=== PATIENT | female | born 1950 | race Asian ===

== ENCOUNTER 2018-10-25 14:41 | Outpatient (CLI) | payer OTHER ==
[~2018-10-25 14:41] MED LIST: BISO5TAB2 PO; GABA300C2 PO; GLIP5TAB65 PO; HYDROCHLOROT12.5 M1 PO; LOSA50TA PO; METF500T PO; OXYC5TAB53 PO; RANI150T78 PO; TRAM50TA PO
== END 2018-10-25 23:29 | disposition home or self-care (01) ==
LOC: RAD 14:41
DX: M17.0 Bilateral primary osteoarthritis of knee (principal); M47.816 Spondylosis without myelopathy or radiculopathy, lumbar region

== ENCOUNTER 2019-05-01 10:05 | Outpatient (CLI) | payer OTHER | END 2019-05-01 23:36 | disposition home or self-care (01) | LOC: RAD 10:05 | DX: M47.812 Spondylosis without myelopathy or radiculopathy, cervical region (principal); M47.816 Spondylosis without myelopathy or radiculopathy, lumbar region ==

== ENCOUNTER 2020-07-28 15:06 | Outpatient (CLI) | payer OTHER | END 2020-07-28 19:17 | disposition home or self-care (01) | LOC: RAD 15:06 | DX: M79.672 Pain in left foot (principal) ==

== ENCOUNTER 2021-07-16 13:45 | Inpatient (IN) | payer OTHER ==
[2021-07-16] VITALS (13 sets, daily range): BP systolic 88–117; BP diastolic 43–83; TEMP 97.4–98.9
[~2021-07-16] VITALS: Ht 160 cm; Wt 93.7 kg
[2021-07-16 16:12] LABS: PLATELET COUNT 384 K/uL (152-353)
[2021-07-16 16:17] LABS: POTASSIUM 4.2 mmol/L (3.6-5.2); SODIUM 141 mmol/L (136-145)
--- NOTE | 2021-07-16 19:50 | NUR ---
BROUGHT PT TO FLOOR VIA WC FROM ER. DID NOT RECIEVE REPORT ON PT FROM ER AND PT DOES NOT CURRENTLY HAVE ANY ORDERS IN OTHER THAN DIET, O2 SUPPLEMENT, AND DIAGNOSIS. PT WAS PUT IN ROOM AND PUT ON 4L NC ACCORDING TO ORDERS. PLACED PT ON TELE WITH CONTINUOUS 02. PT'S CURRENT 02 SAT IS 95% AND HR IS IN THE 80'S A THIS TIME. VITAL SIGNS STABLE. NAD AT THIS TIME. WILL CONTINUE TO MONITOR.
[2021-07-17 04:00] VITALS: BP 111/66; TEMP 97.4
[2021-07-17] MEDS ORDERED: PRAVACHOL20 MG PO (04:32)
[2021-07-17] MEDS ORDERED: ALLERCLEAR10 MG PO (04:33)
[2021-07-17] MEDS ORDERED: LYRICA25 MG PO (04:34)
[2021-07-17] MEDS ORDERED: OMEP20CA PO (04:36)
[2021-07-17] MEDS ORDERED: ZIAC PO (04:36)
[2021-07-17] MEDS ORDERED: METF500T PO (04:37)
[2021-07-17] MEDS ORDERED: GABA300C2 PO ×2 (04:38)
[2021-07-17] MEDS ORDERED: COZAAR100 MG PO (04:39)
[2021-07-17] MEDS ORDERED: VITAMIN D31000 UNIT (04:40)
[2021-07-17] MEDS ORDERED: FOLATE400 MCG PO (04:40)
[2021-07-17] MEDS ORDERED: VITAMIN B6100 MG PO (04:41)
[2021-07-17 04:55] LABS: POTASSIUM 4.8 mmol/L (3.6-5.2)
[2021-07-17 05:07] LABS: PLATELET COUNT 320 K/uL (152-353)
[2021-07-17 05:47] VITALS: BP 112/67; TEMP 97.4; Ht 160 cm; Wt 93.7 kg
--- NOTE | 2021-07-17 06:43 | NUR ---
pt's home meds have been placed in the med room. pt has a plastic bag with a bra, glasses, and keys at her bedside.
[2021-07-17 08:00] VITALS: BP 131/83; TEMP 97.5
--- NOTE | 2021-07-17 10:06 | NUR ---
PHARM D HAS CONTACTED CLINICAL COURIER TO INFORM CLINICAL COURIER THAN PT'S RENAL FUNCTION DOES NOT MEET RECOMMENDED CRITERIA FOR REMDESIVIR INFUSION. MADE AWARE.
--- NOTE | 2021-07-17 10:30 | NUR ---
IN PT'S ROOM FOR MED ADMINISTRATION AND MORNING ASSESSMENT. PT ASKED TO BE PLACED ON THE BEDSIDE COMMODE. PT'S O2 DECREASED WHILE PT WAS UP TO THE BEDSIDE COMMODE BUT REBOUNDED WHEN PLACED BACK INTO THE BED. IT WAS FOUND THAT THE IV IN THE RIGHT AC HAD INFILTRATED AND WAS THUS DISCONTINUED. PT VOIDED AND HAD SMALL LOOSE BM IN THE BEDSIDE COMMODE. PT SHOWS SIGNS OF ANXIETY WITH SHAKING LEGS AND FEET AT TIMES. AFTER TALKING WITH PT, PT CALMED DOWN AND SHAKING CEASED. WILL CONTINUE TO MONITOR.
[2021-07-17 12:00] VITALS: BP 137/77; TEMP 97.7
--- NOTE | 2021-07-17 15:00 | NUR ---
A NEW IV SITE WAS SUCCESSFULLY DONE BY DEMETRI ALICIA RN. A 22G WAS PLACED IN THE RIGHT AC AREA. IV IS FLUSHED AND SHOWING NO SIGNS OF INFILTRATION. PT TOLERATED IV INSERTION WITHOUT ANY DIFFICULTIES.
[2021-07-17 16:00] VITALS: BP 142/89; TEMP 97.6
[2021-07-17 20:00] VITALS: BP 146/83; TEMP 97.9
[2021-07-18] VITALS: BP 115/72; TEMP 97.6
--- NOTE | 2021-07-18 03:25 | NUR ---
PATIENT PLACED ON HFNC AT 40/60
[2021-07-18 04:00] VITALS: BP 141/71; TEMP 98.5
[2021-07-18 05:06] LABS: PLATELET COUNT 393 K/uL (152-353)
[2021-07-18 05:27] LABS: POTASSIUM 4.4 mmol/L (3.6-5.2)
--- NOTE | 2021-07-18 06:12 | NUR ---
07/18/21 @ 0245: PT BEGAN TO DESAT TO LOW 70'S, OXYGEN LITERS INCREASED TO 5LPM VIA NC AT THIS TIME AND RESPIRATORY NOTIFIED. 0300: BROCK, RT, AT BEDSIDE AND PLACED PATIENT ON HIGH FLOW WITH SETTINGS OF 45L, FIO2 60%. PATIENT V/O "THAT FEELS BETTER". SPO2 99% AT THIS TIME. 0305 PATIENT C/O OF NECK PAIN AND ADMITS TO CHRONIC NECK PAIN WITH SURGICAL HX ON NECK. ULTRA 50MG X1 TAB GIVEN AT THIS TIME. 0350 PATIENT RESTING QUIETLY WITH EYES CLOSED IN HIGH FOWLERS POSITION. NAD NOTED WITH PATIENT AT THIS TIME.
[2021-07-18 08:00] VITALS: BP 112/69; TEMP 98.3
--- NOTE | 2021-07-18 10:07 | NUR ---
SPO2 AT 99% DECREASED FIO2 TO 50%. SPO2 AT 95-96%. WILL CONTINUE TO MONITOR AND WEAN TOLERATED.
[2021-07-18 12:00] VITALS: BP 155/82; TEMP 97.9
--- NOTE | 2021-07-18 13:00 | NUR ---
IN PT'S ROOM TO CHECK ON PT. PT IS SITTING IN HIGH FOWLERS WATCHING TV WHILE USING INCENTIVE SPIROMETER. PT WAS LEFT TO RELAX AND CONTINUE PRACTICING INCENTIVE SPIROMETER. WILL BE BACK LATER TO CHECK IN.
[2021-07-18 16:00] VITALS: BP 150/74; TEMP 98
--- NOTE | 2021-07-18 18:39 | NUR ---
SPO2 AT 98% AT 50% ON 50LPM HFNC. DECREASED FIO2 TO 40%. SPO2 AT 97%.
[2021-07-18 20:00] VITALS: BP 175/84; TEMP 97.1
--- NOTE | 2021-07-18 22:27 | NUR ---
SHIFT ASSESSMENT COMPLETED. PATIENT IS RESTING QUIETLY WITH EYES OPEN WATCHING TV. PATIENT DENIES ANY PAIN AT THIS TIME. PATIENT REMAINS ON HIGH FLOW AT THIS TIME AND IS TOLERATING IT WELL. NO ACUTE DISTRESS NOTED.
[2021-07-19] VITALS: BP 163/87; TEMP 97.5
[2021-07-19 04:00] VITALS: BP 140/73; TEMP 98
[2021-07-19 05:53] LABS: PLATELET COUNT 379 K/uL (152-353)
[2021-07-19 06:09] LABS: POTASSIUM 4.6 mmol/L (3.6-5.2)
[2021-07-19 08:00] VITALS: BP 166/88; TEMP 97.9
--- NOTE | 2021-07-19 08:23 | NUR ---
PT SITTING ON SIDE OF BED. PT IS ALERT AND ORIENTED. PT IS ON HIGH FLOW O2. PT ANSWERS ALL QUESTIONS CORRECTLY. NO ACUTE RESP DISTRESS NOTED. PT IS CALM. HEART RATE REGULAR. SKIN WARM AND DRY. WILL CONTINUE TO MONITOR PT.
--- NOTE | 2021-07-19 10:51 | NUR ---
PT IS AWAKE, ALERT AND ORIENTED. PT IS SITTING UP IN THE BED. NO COMPLAINTS OF VOICED.
[2021-07-19 12:00] VITALS: BP 133/94; TEMP 97.7
--- NOTE | 2021-07-19 14:34 | NUR ---
PT IS AWAKE, ALERT AND ORIENTED. PT SITTING ON SIDE OF BED. PT DENIES ANY COMPLAINTS OR NEEDS AT THIS TIME. PT DID NOT EAT LUNCH VOICING, "I CAN'T EAT THAT CHICKEN." PT OFFERED SOUP BUT DECLINED.
[2021-07-19 16:00] VITALS: BP 153/81; TEMP 97.8
[2021-07-19 20:00] VITALS: BP 164/61; TEMP 98.3
--- NOTE | 2021-07-19 20:00 | NUR ---
PM ASSESSMENT COMPLETE.
[2021-07-20 00:18] VITALS: BP 165/92; TEMP 97.6
--- NOTE | 2021-07-20 03:00 | NUR ---
TISSUE AND WIPES GIVEN.
[2021-07-20 04:27] VITALS: BP 144/91; TEMP 97.4
--- NOTE | 2021-07-20 04:44 | NUR ---
PT WAS REPOSITIONED IN BED. USING NRB.
[2021-07-20 05:43] LABS: PLATELET COUNT 396 K/uL (152-353)
[2021-07-20 05:59] LABS: POTASSIUM 4.7 mmol/L (3.6-5.2)
[2021-07-20 08:00] VITALS: BP 152/90; TEMP 97.5
--- NOTE | 2021-07-20 08:15 | NUR ---
Pt. SITTING UP ON SIDE OF BED WITH HIGH FLOW O2 ON.
[2021-07-20 12:00] VITALS: BP 168/88; TEMP 97.7
--- NOTE | 2021-07-20 13:47 | NUR ---
C/O NAUSEA. ZOFRAN 4MG GIVEN IV.
--- NOTE | 2021-07-20 14:30 | NUR ---
NAUSEA RELIEVED. Pt. RESTING IN BED.
[2021-07-20 16:00] VITALS: BP 147/89; TEMP 98.4
[2021-07-20 20:00] VITALS: BP 159/84; TEMP 98.3
[2021-07-21] VITALS: BP 154/64; TEMP 98.3
[2021-07-21 03:57] VITALS: BP 159/83; TEMP 97.7
[2021-07-21 04:44] LABS: PLATELET COUNT 375 K/uL (152-353)
[2021-07-21 05:04] LABS: POTASSIUM 4.6 mmol/L (3.6-5.2)
[2021-07-21 08:00] VITALS: BP 142/67; TEMP 98.3
[2021-07-21 12:00] VITALS: BP 155/82; TEMP 97.9
--- NOTE | 2021-07-21 14:32 | NUR ---
PT ASSIGNED TO THIS NURSE AND REPORT GIVEN BY AVERY NOBLE. PT ALERT AND ORIENTED. DENIES ANY PAIN OR DISCOMFORT. NO NAD NOTED.
[2021-07-21 16:00] VITALS: BP 167/92; TEMP 97.5
--- NOTE | 2021-07-21 18:48 | NUR ---
PT SITTING ON THE SIDE OF THE BED TALKING ON THE PHONE WITH HER GRANDAUGHTER. SHE IS MAINTAING O2 SATS OF 91-92% WHILE TALKING ON THE PHONE. shE IS CALM AND COOPERATIVE WITH STAFF.
[2021-07-21 20:00] VITALS: BP 157/88; TEMP 97.8
[2021-07-22] VITALS: BP 113/65; TEMP 97.7
[2021-07-22 04:00] VITALS: BP 152/87; TEMP 98.5
[2021-07-22 08:00] VITALS: BP 145/81; TEMP 97.8
[2021-07-22] MEDS ORDERED: ZINC220C4 PO (08:52)
[2021-07-22] MEDS ORDERED: IPRAAER INH (08:52)
[2021-07-22] MEDS ORDERED: ASCO500T18 PO (08:53)
[2021-07-22] MEDS ORDERED: DECADRON6 MG PO (08:54)
--- NOTE | 2021-07-22 14:05 | NUR ---
DISCHARGE INSTRUCTION GIVEN TO PT. PT VOICED UNDERSTANDING. ALL QUESTIONS ANSWERED.
--- NOTE | 2021-07-22 14:08 | NUR ---
HOME MEDS RETURNED TO PT.
== END 2021-07-22 14:28 | disposition home or self-care (01) | DRG 177 ==
LOC: ED 13:45 → MED/SURG 18:10
PROVIDERS: Emergency Medicine Emergency Medical Services; ADMIT Internal Medicine; ATTEND Internal Medicine
DX: U07.1 COVID-19 (principal); J12.82 Pneumonia due to coronavirus disease 2019; J96.01 Acute respiratory failure with hypoxia; N17.8 Other acute kidney failure; I12.0 Hypertensive chronic kidney disease with stage 5 chronic kidney disease or end stage renal disease; N18.5 Chronic kidney disease, stage 5; E11.9 Type 2 diabetes mellitus without complications; E11.22 Type 2 diabetes mellitus with diabetic chronic kidney disease; D63.1 Anemia in chronic kidney disease; E78.49 Other hyperlipidemia; E11.42 Type 2 diabetes mellitus with diabetic polyneuropathy; E66.8 Other obesity; Z68.34 Body mass index [BMI] 34.0-34.9, adult
CPT/HCPCS: 36415; 36600; 80053; 82570; 82805; 83605; 83880; 84300; 84484; 85007; 85027; 93005; 94760; 96374; 99283; 99284; J1956; J0456; J1100; J1650; J2405; J3490

== ENCOUNTER 2021-09-27 10:54 | Emergency (ER) | payer OTHER ==
[~2021-09-27] VITALS: Ht 160 cm; Wt 93.4 kg
[~2021-09-27 10:54] MED LIST changes: +ALLERCLEAR10 MG PO; +ASCO500T18 PO; +COZAAR100 MG PO; +DECADRON6 MG PO; +FOLATE400 MCG PO; +IPRAAER INH; +LYRICA25 MG PO; +OMEP20CA PO; +PRAVACHOL20 MG PO; +VITAMIN B6100 MG PO; +VITAMIN D31000 UNIT; +ZIAC PO; +ZINC220C4 PO
[2021-09-27 11:01] VITALS: BP 161/81; TEMP 97.4
== END 2021-09-27 12:03 | disposition home or self-care (01) ==
LOC: ED 10:54
DX: L02.212 Cutaneous abscess of back [any part, except buttock and flank] (principal)
CPT/HCPCS: 96372; 99283; J0696; J1885

== ENCOUNTER 2022-01-30 17:20 | Inpatient (IN) | payer OTHER ==
[~2022-01-30] VITALS: Ht 162.6 cm; Wt 107.6 kg
[2022-01-30 17:24] VITALS: BP 181/88; TEMP 99
[2022-01-30 18:24] LABS: PLATELET COUNT 215 K/uL (152-353)
[2022-01-30 18:26] LABS: POTASSIUM 3.8 mmol/L (3.6-5.2)
[2022-01-30 18:30] VITALS: BP 174/75
[2022-01-30 19:30] VITALS: BP 191/85
[2022-01-30 20:25] VITALS: BP 161/98; TEMP 98.5
[2022-01-30 20:45] VITALS: BP 156/89
[2022-01-31] VITALS (8 sets, daily range): BP systolic 131–166; BP diastolic 76–97; TEMP 97.8–99.1; Ht 162.6 cm; Wt 107.6 kg
[2022-01-31 13:30] LABS: PLATELET COUNT 181 K/uL (152-353)
[2022-01-31] MEDS ORDERED: BISO5TAB2 PO (13:40)
[2022-02-01] VITALS (7 sets, daily range): BP systolic 107–172; BP diastolic 69–96; TEMP 96.3–98.2
[2022-02-01 05:42] LABS: PLATELET COUNT 171 K/uL (152-353)
[2022-02-01 06:06] LABS: POTASSIUM 3.8 mmol/L (3.6-5.2)
[2022-02-02 04:00] VITALS: BP 166/89; TEMP 97.4
[2022-02-02 05:43] LABS: PLATELET COUNT 174 K/uL (152-353)
[2022-02-02 06:07] LABS: POTASSIUM 4.5 mmol/L (3.6-5.2)
[2022-02-02 08:00] VITALS: BP 181/88; TEMP 98.3
[2022-02-02 12:00] VITALS: BP 163/89; TEMP 98.9
== END 2022-02-02 15:30 | disposition home or self-care (01) | DRG 439 ==
LOC: ED 17:20 → MED/SURG 19:45
PROVIDERS: Hospitalist; Internal Medicine; ADMIT Family Medicine; ATTEND Internal Medicine Endocrinology, Diabetes & Metabolism
DX: K85.80 Other acute pancreatitis without necrosis or infection (principal); N30.00 Acute cystitis without hematuria; E11.42 Type 2 diabetes mellitus with diabetic polyneuropathy; E66.8 Other obesity; I10 Essential (primary) hypertension; E78.49 Other hyperlipidemia; K21.9 Gastro-esophageal reflux disease without esophagitis; M15.8 Other polyosteoarthritis; Z68.38 Body mass index [BMI] 38.0-38.9, adult
CPT/HCPCS: 36415; 80053; 80061; 80320; 81000; 82150; 83690; 84484; 85027; 87088; 87635; 93005; 96360; 96361; 96365; 96375; 99284; J0696; J1170; J1650; J2405; J3490; Q9963; U0003